=== PATIENT | female | born 2000 | race Caucasian/White ===

== ENCOUNTER 2019-04-29 11:40 | Inpatient (IN) | payer MEDICAID, SELFPAY ==
[2019-04-29] MEDS: Lactated Ringers 1,000 ML 50 ML IV ×4 (12:10→23:59)
[2019-04-29 12:22] VITALS: BMI 26.9
[2019-04-29 12:33] LABS: Absolute Lymphocyte Count 1.35 X10^3/ul (0.83-4.51); Absolute Neutrophil Count 7.5 X10^3/uL (2.0-7.7); Basophil# 0.01 X10^3/uL; Basophil% 0.1 % (0-1); Eosinophil# 0.05 X10^3/uL; Eosinophils% 0.5 % (0-5); Hematocrit 32.9 % (37-47); Hemoglobin 10.8 g/dl (12.0-15.0); Lymphocyte # 1.35 X10^3/ul (4.0); Lymphocyte % 13.9 % (19-41); Mean Corp Hgb Conc 32.8 g/gl (32-36); Mean Corpuscular Hgb 27.3 pg (27.0-32.0); Mean Corpuscular Volume 83.1 fL (81-99); Mean Platelet Vol. 9.6 fl (6.2-12.0); Monocyte# 0.79 X10^3/uL; Monocyte% 8.1 % (0-10); Neutrophil # 7.45 X10^3/uL (2.7-7.7); Neutrophil % 76.9 % (47-70); POSITIVE COUNT NO; POSITIVE DIFFERENTIAL NO; POSITIVE MORPHOLOGY NO; Platelet Count 205 K/mm3 (150-450); RBC Distribution Width CV 13.6 % (11.6-14.6); RBC Distribution Width SD 41.4 fl (35.1-43.9); Red Blood Count 3.96 M/mm3 (4.2-5.4); White Blood Count 9.7 K/mm3 (4.4-11.0)
--- NOTE | 2019-04-29 12:57 | PCM.HP.OB ---
- Problem List (1) PROM (premature rupture of membranes) Status: Acute Qualifiers: PROM onset of labor timing: unspecified duration between rupture of membranes and onset of labor PROM gestational age: full term Qualified Code(s): O42.92 - Full-term premature rupture of membranes, unspecified as to length of time between rupture and onset of labor History Date of Admission: 04/29/19 Final CUONG: 04/25/19 Final CUONG Source: US <20 weeks Gestational age: 40 Weeks and 4 Days History of this : This is a 18 year-old, G [1], P [0], at 40 weeks gestational age that reports + LOF yesterday in the afternoon. Patient could not accurately determine the time she started to feel an increase in leaking. +valsalva, pooling, ferning and Nitrazine noted in office. Patient is GBS negative. Patient sent over from office for labor augmentation at this time. Allergies No Known Allergies Allergy (Verified 04/29/19 12:21) Home Medications: Home Medications Vits [Prenatabs FA] 1 tablet PO DAILY 04/29/19 Smoking Status: Never smoker Alcohol: None Number of Fetus(es): 1 Heart Tracing: Baseline 130, moderate varability, + accels, no decels TOCO Analysis: Uterine irritability noted, no clear contraction pattern easily noted on tocometer History Past Pregnancies: Past Pregnancies Delivery Date Name GA/Weeks Outcome Route Weight Gender Labor Length Anesthesia Delivery Location Provider FOB Labs: See [facility] record for lab work - Patient is A+, Abs Neg. GBS NEg. Remainder of NOB panel WNL. Expected Delivery Method: Spontaneous Vaginal Describe any other labor & delivery plans:: Unsure if she desires an epidural Number of Visits: >10 Review of Systems Constitutional: Denies: Chills, Fever, Weight Change HEENT: Denies: Head Aches, Sinus Congestion, Sinus Drainage Cardiovascular: Denies: Chest Pain, Palpitations Respiratory: Denies: Cough, Shortness of breath at rest, Sputum production Gastrointestinal: Denies: Abdominal Pain, Nausea, Vomiting Genitourinary: Denies: Dysuria Musculoskeletal: Denies: Joint Pain, Joint Tenderness Skin: Denies: Rash, Wounds Neurological: Denies: Numbness, Tingling, Focal weakness Psychiatric: Denies: Anxiety, Depression, Homicidal Ideations, Suicidal Ideations Hematologic/ Lymphatic: Denies: Easy Bruising, Easy Bleeding Physical Exam Vitals: VSS, Afebrile - See nursing note for Vital Signs General: Alert, Oriented x3, No apparent distress HEENT: Atraumatic, Normocephalic. Negative for: Thyromegaly, Lymphadenopathy Cardiovascular: Regular rate, Regular Rhythm Lungs: Normal air movement Abdomen: Soft, Non Tender, Gravid Extremities:: No edema Neurological: Deep Tendon Reflexes 2+/4 and Symmetrical, Neuro grossly intact SMALL ELECTRIC ENGINE TECHNICIAN: Normal external genitalia. Negative for: Vulvar lesions Estimated gestational size: Appropriate for gestational size - EFW = 7.5# Presentation: Cephalic Cervix Dilation (cm): 3.5 Station: -2 Effacement (%): 70 Assessment/Plan All Active Problems PROM (premature rupture of membranes) (Acute) This is a 18 year-old, G [1], P [0], at 40 weeks gestational age, PROM, Category I FHT. P: 1) Admit patient - Dr. Ilia IBRAHIM notified of admission 2) Start Pitocin for labor augmentation at this time 3) Anticipate Viviana Rueda APRN-RAYSHAWN
[2019-04-29] MEDS: Oxytocin 30 units/NS 500 ml 30 UNITS/500 ML IV.SOLN IV (13:01)
--- NOTE | 2019-04-29 17:54 | PN.OBGYN_ITS ---
Patient Problems: Active and Suspected Problems PROM (premature rupture of membranes) (Acute) Subjective: Patient sitting up on birthing ball. Reporting that ctx are starting to intensify now. Reports some continued clear fluid leaking out at this time. Objective: FHt baseline 130, moderate variability, + accels, no decels Ctx q 2 minutes lasting 60-90 seconds SVE = 5/80/-2, cervix now midposition, soft - Physical Exam General: Alert, Oriented x3, Cooperative HEENT: Atraumatic, Normocephalic Lungs: Normal air movement Cardiovascular: Regular rate, No murmurs Abdomen: Soft, Non Tender, Gravid Extremities: No edema, Capillary Refill Less than 3 Seconds Skin: No rashes, No breakdown Musculoskeletal: No Tenderness to Palpation of Joints or Extremities Neurological: Cranial nerves II-XII grossly intact Psych/Mental Status: Normal Affect, Appropriate Weight: 171 lb 11.841 oz Body Mass Index (BMI) 26.9 Intake and Output for Last 24 Hours 04/27/19 04/28/19 04/29/19 23:59 23:59 23:59 Intake Total 400 / 400 Output Total 400 / 400 Balance 0 / 0 Laboratory Tests Past 24 Hrs 04/29/19 04/29/19 12:10 12:10 WBC 9.7 RBC 3.96 L Hgb 10.8 L Hct 32.9 L MCV 83.1 MCH 27.3 MCHC 32.8 RDW 13.6 RDW Differential 41.4 Plt Count 205 MPV 9.6 Immature Gran % (Auto) 0.500 Neut % (Auto) 76.9 H Lymph % (Auto) 13.9 L Spencer % (Auto) 8.1 Eos % (Auto) 0.5 Baso % (Auto) 0.1 Absolute Neuts (auto) 7.5 Absolute Lymphs (auto) 1.35 Total Counted Not Reportable Blood Type A POSITIVE Antibody Screen NEGATIVE Medical Necessity - Tobacco Use Smoking Status: Never smoker Assessment/Plan All Active Problems PROM (premature rupture of membranes) (Acute) 18 y/o @ 40+ weeks, PROM x 28 hours, Pitocin Augmentation, Category I FHT P: 1) Continue pitocin IV for labor augmentation 2) Dr. Ilia IBRAHIM updated on patient status 3) Anticipate Viviana Rueda APRN-RAYSHAWN
[2019-04-29] MEDS: Ondansetron 4 MG/2 ML Vial IV (19:01)
--- NOTE | 2019-04-29 21:57 | PCM.PN.OB ---
Patient Problems: Active and Suspected Problems PROM (premature rupture of membranes) (Acute) Subjective: Patient comfortable after receiving epidural. Patient continues to contract regularly with IV pitocin infusing. Some decreases in baby's heart rate post-epidural noted. Request from nursing staff to check SVE and place FSE at this time. Objective: Baseline 120 with decels to 90-100 initially after contractions, moderate variability. After FSE placed, baseline 150, moderate variability. Ctx initially 1-2 minutes, tachysystole noted. IV pitocin ordered to be halved from 12 milliunits to 6 milliunits. SVE = 690/0 midposition cervix - Physical Exam General: Alert, Oriented x3, Cooperative Lungs: Clear to auscultation, Normal air movement Cardiovascular: Regular rate, Regular Rhythm Abdomen: Soft, Non Tender, Non-Distended Extremities: No edema Neurological: Deep Tendon Reflexes 2+/4 and Symmetrical Weight: 171 lb 11.841 oz Body Mass Index (BMI) 26.9 Intake and Output for Last 24 Hours 04/27/19 04/28/19 04/29/19 23:59 23:59 23:59 Intake Total 400 / 400 Output Total 400 / 400 Balance 0 / 0 Laboratory Tests Past 24 Hrs 04/29/19 04/29/19 12:10 12:10 WBC 9.7 RBC 3.96 L Hgb 10.8 L Hct 32.9 L MCV 83.1 MCH 27.3 MCHC 32.8 RDW 13.6 RDW Differential 41.4 Plt Count 205 MPV 9.6 Immature Gran % (Auto) 0.500 Neut % (Auto) 76.9 H Lymph % (Auto) 13.9 L Patrick % (Auto) 8.1 Eos % (Auto) 0.5 Baso % (Auto) 0.1 Absolute Neuts (auto) 7.5 Absolute Lymphs (auto) 1.35 Total Counted Not Reportable Blood Type A POSITIVE Antibody Screen NEGATIVE Medical Necessity - Tobacco Use Smoking Status: Never smoker Assessment/Plan All Active Problems PROM (premature rupture of membranes) (Acute) 18 y/o @ 40+ weeks, PROM x 32 hours, Active Labor, IV Pitocin Augmentation P: 1) conitnue present management 2) Anticipate Viviana Rueda APRN-CNRogelio
[2019-04-29] MEDS: fentaNYL-bupivacaine (epidural) 100 ML BAG EPIDURAL (23:31)
--- NOTE | 2019-04-30 00:55 | PCM.PN.BLA ---
Progress Note Addendum: Page received from nursing staff; patient is complete/complete/+1 station. Will start pushing at this time. Viviana JAY
[2019-04-30] MEDS: Oxytocin 30 units/NS 500 ml 30 UNITS/500 ML IV.SOLN 334 UNITS IV (01:36)
[2019-04-30] MEDS: Oxytocin 30 units/NS 500 ml 30 UNITS/500 ML IV.SOLN 167 UNITS IV (02:07)
--- NOTE | 2019-04-30 02:07 | PCM.OPRPT ---
Problem List (1) PROM (premature rupture of membranes) Status: Acute Qualifiers: PROM onset of labor timing: unspecified duration between rupture of membranes and onset of labor PROM gestational age: full term Qualified Code(s): O42.92 - Full-term premature rupture of membranes, unspecified as to length of time between rupture and onset of labor Report of Operation Date of Procedure: 04/30/19 Pre-Operative Diagnosis: PROM @ 40+ weeks, Labor Augmentation with IV Pitocin Post-Operative Diagnosis: of viable boy baby Vaginal Delivery Maternal Presentation: Spontaneous Rupture of Membranes Amirah is a 18 who presented to [facility] office today reporting scant clear leaking fluid. Patient reports possible SROM afternoon of 04/28/19 around approximately 2pm. Patient reports she was filling a pad throughout the evening and overnight. She reports that baby was always moving well, denies VB. Confirmed SROM noted in office and patient sent to hospital for augmentation of labor using IV pitocin. Amniotic Membrane Rupture Type: Spontaneous at home Rupture of Membrane time: 04/28/19 @ 1400 Amniotic Fluid Description: Clear Final CUONG: 04/25/19 Final CUONG Source: US <20 weeks Gestational age: 40 Weeks and 5 Days Date of Procedure: 04/30/19 Pre-Operative Diagnosis: PROM @ 40+ weeks, Labor Augmentation Post-Operative Diagnosis: of viable boy baby Surgery/ Procedure Performed: Spontaneous Vaginal Delivery Anesthesiologist: Saundra Pereyra Type of Anesthesia: Epidural Description of Procedure: Patient progressed uneventfully to C/C/+1 and then pushed well to over intact perineum @ 0130. delivery OA and then restituted to MAI and then LOT. Anterior shoulder presented easily followed by posterior shoulder and body. Infant had good tone and spontaneous respirations. Infant was dried and stimulated and was placed on maternal chest where the mouth and nose was bulb suctioned and baby was dried and stimulated. Apgars 8 and 9. Weight pending. Umbilical cord was clamped and cut once it stopped pulsing. IV pitocin per protocol for active management of the 3rd stage started. Placenta then delivered spontaneously via Weaver mechanism; placenta intact with 3VC. Upon inspection, 1st degree vaginal laceration with Rt. labial extension noted. Repaired in the usual fashion using 3-0 rapide suture under epidural analgesia. Sponge and needle count correct. Vaginal sweep negative. FF midline 1FB below umbilicus. Baby to breast, [id number] and bonding initiated. Viviana Rueda FOREST TECHNICIAN-CNM Presentation: Vertex, MAI Placental Delivery Description: Spontaneous Placenta Disposition: [facility] Cord Vessel Description: 3 Vessels Cord Entanglement: None Estimated Blood Loss: 200 A gender: Male (1 minute): 8 (5 minute): 9 Episiotomy Description: None Laceration: Vaginal Extension/lac, 1st degree Medications given after delivery: IV Pitocin Complications: None
--- NOTE | 2019-04-30 02:14 | OP.PCM_ITS ---
Problem List (1) PROM (premature rupture of membranes) Status: Acute Qualifiers: PROM onset of labor timing: unspecified duration between rupture of membranes and onset of labor PROM gestational age: full term Qualified Code(s): O42.92 - Full-term premature rupture of membranes, unspecified as to length of time between rupture and onset of labor Report of Operation Date of Procedure: 04/30/19 Pre-Operative Diagnosis: PROM @ 40+ weeks, Labor Augmentation with IV Pitocin Post-Operative Diagnosis: of viable boy baby Vaginal Delivery Maternal Presentation: Spontaneous Rupture of Membranes Amirah is a 18 who presented to [facility] office today reporting scant clear leaking fluid. Patient reports possible SROM afternoon of 04/28/19 around approximately 2pm. Patient reports she was filling a pad throughout the evening and overnight. She reports that baby was always moving well, denies VB. Confirmed SROM noted in office and patient sent to hospital for augmentation of labor using IV pitocin. Amniotic Membrane Rupture Type: Spontaneous at home Rupture of Membrane time: 04/28/19 @ 1400 Amniotic Fluid Description: Clear Final CUONG: 04/25/19 Final CUONG Source: US <20 weeks Gestational age: 40 Weeks and 5 Days Date of Procedure: 04/30/19 Pre-Operative Diagnosis: PROM @ 40+ weeks, Labor Augmentation Post-Operative Diagnosis: of viable boy baby Surgery/ Procedure Performed: Spontaneous Vaginal Delivery Anesthesiologist: Saundra Pereyra Type of Anesthesia: Epidural Description of Procedure: Patient progressed uneventfully to C/C/+1 and then pushed well to over intact perineum @ 0130. delivery OA and then restituted to AMI and then LOT. Anterior shoulder presented easily followed by posterior shoulder and body. Infant had good tone and spontaneous respirations. Infant was dried and stimulated and was placed on maternal chest where the mouth and nose was bulb suctioned and baby was dried and stimulated. Apgars 8 and 9. Weight pending. Umbilical cord was clamped and cut once it stopped pulsing. IV pitocin per protocol for active management of the 3rd stage started. Placenta then delivered spontaneously via Weaver mechanism; placenta intact with 3VC. Upon inspection, 1st degree vaginal laceration with Rt. labial extension noted. Repaired in the usual fashion using 3-0 rapide suture under epidural analgesia. Sponge and needle count correct. Vaginal sweep negative. FF midline 1FB below umbilicus. Baby to breast, [id number] and bonding initiated. Viviana Rueda INTERNET SITE DESIGNER-CNM Presentation: Vertex, MAI Placental Delivery Description: Spontaneous Placenta Disposition: [facility] Cord Vessel Description: 3 Vessels Cord Entanglement: None Estimated Blood Loss: 200 A gender: Male (1 minute): 8 (5 minute): 9 Episiotomy Description: None Laceration: Vaginal Extension/lac, 1st degree Medications given after delivery: IV Pitocin Complications: None
[2019-04-30] MEDS: 0.9% Saline Lock 10 ML Syringe IV (03:25)
[2019-04-30 08:41] VITALS: BP 117/66; PULSE 80; RESP 16; TEMP 36.6
[2019-04-30 12:50] VITALS: BP 102/47; PULSE 93; RESP 16; TEMP 36.5
[2019-04-30 14:00] VITALS: BP 105/53; PULSE 74; RESP 16; TEMP 36.7
[2019-04-30] MEDS: Ibuprofen 600 MG Tablet PO (16:14)
[2019-04-30 18:00] VITALS: BP 105/63; PULSE 97; RESP 16; TEMP 36.7
--- NOTE | 2019-04-30 18:43 | NURSING ---
Spectra S2 home breast pump given to Mom as approved from her insurance and instructions given. America LANGLEY IBCLC
[2019-04-30 19:45] VITALS: BP 130/67; PULSE 87; RESP 16; TEMP 36.5
[2019-05-01] VITALS: BP 107/50; PULSE 80; RESP 14; TEMP 36.6; O2SAT 96
[2019-05-01 01:31] VITALS: BP 114/58; PULSE 86; RESP 16; TEMP 36.7; O2SAT 96
[2019-05-01] MEDS: Ibuprofen 600 MG Tablet PO ×2 (07:15→16:16)
--- NOTE | 2019-05-01 09:01 | PCM.PN.OB ---
Patient Problems: Active and Suspected Problems PROM (premature rupture of membranes) (Acute) Subjective: pain well controlled, average lochia, no N/V. C/o pain w/ - Physical Exam General: Alert, Cooperative, No apparent distress Vital Signs Temp Pulse Resp BP Pulse Ox 98.0 F 86 16 114/58 L 96 05/01/19 01:31 05/01/19 01:31 05/01/19 01:31 05/01/19 01:31 05/01/19 01:31 Oxygen Delivery Method Room Air Weight: 77.9 kg Body Mass Index (BMI) 26.9 Intake and Output for Last 24 Hours 04/29/19 04/30/19 05/01/19 23:59 23:59 23:59 Intake Total 400 / 400 2343 / 2343 Output Total 400 / 400 1700 / 1700 Balance 0 / 0 643 / 643 Medical Necessity - Tobacco Use Smoking Status: Never smoker Assessment/Plan All Active Problems PROM (premature rupture of membranes) (Acute) POD#1 routine care likely d/c home tomorrow
[2019-05-01 11:15] VITALS: BP 108/52; PULSE 83; RESP 16; TEMP 37.1; O2SAT 97
[2019-05-01 16:03] VITALS: BP 126/75; PULSE 88; RESP 16; TEMP 36.6; O2SAT 98
--- NOTE | 2019-05-01 16:19 | CASEMGMT ---
Social Work Assessment Labor and Delivery Unit Date of Referral: 05/01/2019 Time of Referral: 0123 Referred By: Dr. Mauro Date of Intervention: 05/01/2019 Time of Intervention: 1530 Reason for Referral: maternal age and resources History obtained from: medical records, mother of baby (MOB) Amirah Velasquez, and reported father of baby (FOB) Todd Capellan. Household composition: MOB and FOB have a home they rent. At this time there are two male roommates ages 19 and 17 living in the home. MOB report home situation is safe and adequate. Patient's parent/guardian status: MOB is a 18 year old single ex-[employer] [facility] female and FOB is 25 years old, single ex-[employer] [employer] [facility] male. Together for 2 years. When speaking privately to MOB, MOB denies any form of abuse in the relationship with FOB. Baby born this admission, Michele Capellan, is the first child for both. Medical History: LAURY is G1, P0 to 1 after delivering Michele. care started later at 15 weeks but regular thereafter. There were some insurance issues getting in the way of seeking care out earlier. Baby Michele delivered at 40 weeks gestation, Apgars 8 and 9 at 1 and 5 minutes respectively. weight for baby was 7 pounds 5 ounces. Educational Status: LAURY has an 8th grade education as is the norm for the [employer] [employer] [employer] community. MOB reports to be able to read, write, and to understand what is read. Financial Status: FOB is self employed in construction and has 2 workers under him. MOB works painting interior of houses. MOB reports the roommates contribute financially to the household. Supplies: MOB reports to have needed supplies including car seat, bassinet, crib, clothing, diapers, wipes, and plans to breast feed baby. Childcare/Caregiver(s): MOB will be primary caregiver, along with FOB. Transportation: Both MOB and FOB report to have a drivers license and vehicles to drive. Programs/Agencies Involved: MOB has medicaid through [facility]. MOB and FOB interested in WIC and report agreement with [facility] referral. Children Services/Legal Issues: None reported or indicated. Behavioral Health Issues: Mental Health History: MOB reports history of depression as a teen, diagnosed in 2016. Sought treatment at [facility], an [facility] based counseling agency. MOB also sought out counseling previously at [facility]. LAURY denies history of medications and reports counseling worked well. MOB denies any history of thoughts, plans, intent or past attempts regarding suicide or harm others. Substance Use History: LAURY denies any history and does not smoke tobacco. Family History: LAURY reports her father has history of depression and anger issues. Reports that almost all of LAURY's 11 siblings sought out counseling and that once MOB's parents went to counseling the children felt more loved by their parents. JAMIL does reportedly have a brother with schizophrenia and then a sister who had history of dependence on pain pills with subsequent depression after. Drug Screens: Negative maternal drug screen on 01.02.2019. Family/Social Stressors: Limit support due to MOB leaving the [facility], though it is reported that LAURY's mother is throwing a baby shower for MOB and baby after discharge from the hospital. LAURY's maternal grandfather is currently hospitalized and under comfort care only, not expected to live much longer. LAURY admits to some irritability and worry during the , wondering if will be a good mother as well as reflecting on parents that LAURY had growing up. Support Systems: MOB reports JAMIL is a support, that a couple of JAMIL's sister let the Tobias and live [address] and are willing to help out. MOB reports to feel to have adequate support available, and that will reza for help if needed. FOB plans to take the remainder of the week off from work to help MOB at home. Depression/Shaken Baby/Safe Sleeping : Discussed with MOB and FOB together what safe sleeping means as well as shaken baby preventions. Discussed and educated to mood and anxiety disorders, risk factors, and importance of seeking out help and support should symptoms arise. Discussed counseling and medications as interventions to help. Educated that father are also at risk. Communication styles and methods discussed with MOB and FOB regarding ways to be supportive and helpful to each other. ASSESSMENT: MOB and FOB both engaged in conversation with social work job titles and willing to talk. FOB with tendency to dominate conversation, talk over MOB, but also quiet when social work job titles would look only at MOB. MOB did speak up several times and correct FOB or challenge what FOB said. Both appearing comfortable with each other during discussion. FOB attentive to baby, picked baby up and held baby gently during social work visit. At one point FOB did get up quickly and baby seemed to be close to the crib. MOB voiced that FOB needs to be careful with the baby and watch the baby's head. This health science writer had to leave the room at one point as many visitors came to visit and could only stay a short time due to having a cdl b driver waiting. During the time that social work job titles left the room, the FOB came to the desk to ask about certificate questions. At the time that FOB was at the desk the FOB did mention that worried about MOB having depression since FOB's sister had depression. Assured FOB that social work job titles will provide education to both on what to look for, as well as will be meeting with MOB one on one to further address depression symptoms. FOB accepted this without issue. FOB did leave the room when social work job titles asked. Completed the PHQ9 screen which is a score of 3, indicative of minimal to mild depressive symptoms. MOB reports that now that knows what to look for regarding mood and anxiety disorders, it will be easier for MOB to seek out help and support. MOB reports to love the baby, to feel a connection and feels protective of the baby. Talked with MOB about the young men that live in the home and whether there are any safety factors there. MOB reports that she and FOB have discussed that if the roommates get in the way or cause a problem once the baby is born the roommates will be asked to leave as the baby's care and safety is first and foremost to MOB and FOB. MOB reports this has already been laid out and discussed with the roommate as well, so expectations have been set. Explored whether MOB and FOB can manage financially without the help from the roommates. MOB reports will be magdalena to manage, that things would just be tighter. MOB reports to feel safe at home going, denies abuse or safety concerns with FOB, and able to identify several women that can call for help if needed. MOB and FOB both agree to a [facility] referral for extra support. Both MOB and FOB expressed interest in online supports available for mood issues. PLAN: MOB and baby will discharge home when ready. [facility] resources lists provided as well as packet on depression and mood and anxiety disorders including local and online supports. Will see MOB and FOB again on 05-02-2019 to provide more information on WIC. -ERICKSON Chua, FLUID PUMP OPERATOR
[2019-05-01 19:45] VITALS: BP 130/67; PULSE 87; RESP 16; TEMP 36.7
[2019-05-02 02:00] VITALS: BP 101/47; PULSE 63; RESP 16; TEMP 36.6
[2019-05-02] MEDS: Ibuprofen 600 MG Tablet PO (06:02)
--- NOTE | 2019-05-02 08:05 | PCM.PN.OB ---
Patient Problems: Active and Suspected Problems PROM (premature rupture of membranes) (Acute) Subjective: Patient doing well. Pain controlled. Ambulating and voiding without difficulty. Rabia reg diet. No dizziness, CP, SOB, leg pain. . Lochia normal. She feels ready to go home today - Physical Exam General: Alert, No apparent distress HEENT: Atraumatic Lungs: - - No increased resp effort Abdomen: Soft, Non Tender, - - FF Extremities: No edema, No Calf Tenderness Skin: No rashes Neurological: Neuro grossly intact Psych/Mental Status: Normal Affect, Appropriate Vital Signs Temp Pulse Resp BP Pulse Ox 97.8 F 63 16 101/47 L 98 05/02/19 02:00 05/02/19 02:00 05/02/19 02:00 05/02/19 02:00 05/01/19 16:03 Oxygen Delivery Method Room Air Weight: 171 lb 11.841 oz Body Mass Index (BMI) 26.9 Intake and Output for Last 24 Hours 04/30/19 05/01/19 05/02/19 23:59 23:59 23:59 Intake Total 2343 / 2343 Output Total 1700 / 1700 Balance 643 / 643 Medical Necessity - Tobacco Use Smoking Status: Never smoker Assessment/Plan All Active Problems PROM (premature rupture of membranes) (Acute) PPD#2 s/p - Doing well - - D/c home today. Discharge instructions reviewed
[2019-05-02 08:09] VITALS: BP 118/64; PULSE 64; RESP 16; TEMP 36.7
--- NOTE | 2019-05-02 08:09 | DCINST_ITS ---
Discharge Diet: No Restrictions Discharge Activity: Return to Normal Activity, May Shower, May Take a Tub Bath May resume sexual activity in: 6 weeks Weight Bearing Status: Full weight bearing Lifting Restrictions: None Call your doctor if you observe: Fever of 101 or Higher, Inability to urinate, Inability to have a bowel movement, Using more than one pad per hour, Shortness of breath, Dizziness, Chest pain, Increased palpitations (irregular heartbeat), Calf discomfort, Uncontrolled pain Instructions: After a Vaginal Additional Instructions: If you experience any of the following, contact your healthcare provider. * Bleeding that soaks a pad every hour for 2 hours * Fever 100.4 or higher * Unrelieved incision or abdominal pain * Swelling, redness, discharge or bleeding from your incision or episiotomy site * Your incision begins to separate * Problems urinating (including inability to urinate or burning while urinating). * Visual changes * Severe headache * Flu-like symptoms * Pain or redness in one of both of your breasts * Pain, warmth, tenderness or swelling in your legs, especially the calf area * Frequent nausea and vomiting * Symptoms of depression or anxiety If you experience any of the following, call 911 or go to the nearest Emergency Room. * Chest pain * Problems breathing * Seizure activity * Partial or complete paralysis of a body part, slurred speech, weakness or drooping of the face, or a sudden inability to walk or hold your balance Allergies/Adverse Reactions: Allergies No Known Allergies Allergy (Verified 04/29/19 12:21) Medications to take at Discharge Vits [Prenatabs FA] 1 tablet PO DAILY 04/29/19 Please Follow Up With: Viviana Rueda CNM When: 6 weeks . Call if you desire to be seen in 1-2 weeks Test Results: Test results from this visit will be discussed in further detail at your follow- up appointment, if applicable. Proposed Discharge Date: 05/02/19
[2019-05-02 08:45] VITALS: BP 118/64; PULSE 84; RESP 16; TEMP 36.6; O2SAT 97
[2019-05-02 10:00] VITALS: BP 118/64; PULSE 64; RESP 16; TEMP 36.7
--- NOTE | 2019-05-02 13:43 | CASEMGMT ---
Social Work Labor and Delivery Provided mother of baby (MOB) Amirah Velasquez and Father of baby (FOB) with WIC applications this date. Neither had voiced any questions about information provided by this bid writer during initial assessment. Submitted Help Me Grow referral via the [facility]'s secure web based referral system this date. Also indicated family's interest in WIC services. No other services requested or indicated at this time. -LEE Chua, MAINTENANCE JOURNEYMAN
== END 2019-05-02 12:00 | disposition home or self-care (01) | DRG 560 ==
PROVIDERS: Admitting Provider Obstetrics & Gynecology; Visit Provider Obstetrics & Gynecology
DX: O42.12 Full-term premature rupture of membranes, onset of labor more than 24 hours following rupture (principal); O70.0 First degree perineal laceration during delivery; Z3A.40 40 weeks gestation of pregnancy; Z37.0 Single live birth
CPT/HCPCS: 59025; 59050; 85025; 86850; 86900; 99218; J7120; A4216; G0378; J2405